=== PATIENT | male | born 1990 | race African-American/Black ===

== ENCOUNTER 2021-08-12 06:42 | Emergency (ER) | payer OTHER ==
[2021-08-12 07:19] VITALS: BMI 35.9
[2021-08-12 10:11] LABS: BASO % 0.4 % (0-2.0); EOS % 1.4 % (0-4.5); HEMATOCRIT 46.4 % (35.4-49); HEMOGLOBIN 15.7 GM/dL (11.7-16.9); LYMPH % 38.3 % (8-40); MCH 29.8 pg (25.7-33.7); MCHC 33.9 g/dl (32.0-35.9); MEAN CELL VOLUME 87.7 fl (80-96); MEAN PLT VOLUME 8.2 fl (7.5-11.1); MONO % 14.4 % (3.8-10.2); NEUT % 45.5 % (42.8-82.8); PLATELET COUNT 182 10^3/uL (134-434); RBC 5.29 M/mm3 (4.00-5.60); RDW 13.9 % (11.9-15.9); WHITE BLOOD COUNT 2.6 K/mm3 (4.0-10.0)
[2021-08-12 10:33] LABS: CHLORIDE 110 mmol/L (98-107); SODIUM 142 mmol/L (136-145)
[2021-08-12 10:35] LABS: ANION GAP 5 MMOL/L (8-16); BLOOD UREA NITROGEN 13.5 mg/dL (7-18); CALCIUM 9.6 mg/dL (8.5-10.1); CO2 28 mmol/L (21-32); GLUCOSE,RANDOM 90 mg/dL (74-106)
[2021-08-12 10:38] LABS: CREATININE 0.9 mg/dL (0.55-1.3); SGOT/AST 15 U/L (15-37); SGPT/ALT 20 U/L (13-61)
[2021-08-12 10:40] LABS: BILIRUBIN,TOTAL 1.1 mg/dL (0.2-1); TOT PROT 6.6 g/dl (6.4-8.2)
[2021-08-12 10:41] LABS: ALK PHOS 89 U/L (45-117)
[2021-08-12 10:45] VITALS: BP 124/67; PULSE 60; TEMP 97.9
== END 2021-08-12 14:21 | disposition home or self-care (01) ==
LOC: JER 06:42
DX: R07.89 Other chest pain (principal); B34.9 Viral infection, unspecified
CPT/HCPCS: 0241U-QW; 36415; 71046-TC-FY; 80053; 82550; 82553; 84484; 85025; 93005; 93010; 99285-25

== ENCOUNTER 2022-08-27 09:25 | Emergency (ER) | payer OTHER ==
[2022-08-27 09:33] VITALS: BP 121/88; PULSE 65; RESP 17; TEMP 97.9; BMI 38.5
[2022-08-27] MEDS ORDERED: TETANUS AND DIPHTHERIA TOXOID 0.5 ML DISP.SYRIN IM ONE (10:19)
[2022-08-27] MEDS ORDERED: DIPHTH,PERTUSS(ACELL),TET 0.5 ML DISP.SYRIN IM ONE (10:21)
[2022-08-27 10:38] LABS: BASO % 1.5 % (0-2.0); EOS % 0.7 % (0-4.5); HEMATOCRIT 50.3 % (35.4-49); LYMPH % 38.1 % (8-40); MCH 28.6 pg (25.7-33.7); MCHC 33.7 g/dl (32.0-35.9); MEAN CELL VOLUME 84.8 fl (80-96); MEAN PLT VOLUME 8.1 fl (7.5-11.1); MONO % 9.7 % (3.8-10.2); PLATELET COUNT 161 10^3/uL (134-434); RBC 5.93 M/mm3 (4.00-5.60); RDW 14.4 % (11.9-15.9); WHITE BLOOD COUNT 2.9 K/mm3 (4.0-10.0)
[2022-08-27 11:01] LABS: POTASSIUM 4.6 mmol/L (3.5-5.1)
[2022-08-27 11:03] LABS: ALBUMIN 4.7 g/dl (3.4-5.0); BLOOD UREA NITROGEN 13.4 mg/dL (7-18); CALCIUM 9.6 mg/dL (8.5-10.1)
[2022-08-27 11:11] LABS: BILIRUBIN,TOTAL 2.3 mg/dL (0.2-1); TOT PROT 7.4 g/dl (6.4-8.2)
[2022-08-27 12:00] LABS: HIV INTERPRETATION NEGATIVE (NEGATIVE)
== END 2022-08-27 11:29 | disposition home or self-care (01) ==
LOC: JERFT 09:25
PROC: 3E0234Z Introduction of Serum, Toxoid and Vaccine into Muscle, Percutaneous Approach (ICD-10-PCS; principal; 2022-08-27)
DX: S61.432A Puncture wound without foreign body of left hand, initial encounter (principal); W46.0XXA Contact with hypodermic needle, initial encounter
CPT/HCPCS: 36415; 80053; 85025; 86704; 86803; 87340; 87389; 87517; 99283-25

== ENCOUNTER 2022-09-16 10:19 | Emergency (ER) | payer OTHER ==
[2022-09-16 10:24] VITALS: BMI 36.6
[2022-09-16] MEDS ORDERED: SODIUM CHLORIDE 1,000 ML IV STA (11:44)
[2022-09-16 12:43] LABS: BASO % 0.7 % (0-2.0); EOS % 1.5 % (0-4.5); HEMATOCRIT 47.2 % (35.4-49); HEMOGLOBIN 15.9 GM/dL (11.7-16.9); LYMPH % 32.4 % (8-40); MCH 28.6 pg (25.7-33.7); MCHC 33.6 g/dl (32.0-35.9); MEAN PLT VOLUME 8.7 fl (7.5-11.1); MONO % 7.1 % (3.8-10.2); NEUT % 58.3 % (42.8-82.8); PLATELET COUNT 143 10^3/uL (134-434); RBC 5.55 M/mm3 (4.00-5.60); RDW 14.7 % (11.9-15.9); WHITE BLOOD COUNT 2.4 K/mm3 (4.0-10.0)
[2022-09-16 13:04] LABS: CALCIUM 9.9 mg/dL (8.5-10.1)
[2022-09-16 13:05] LABS: ALBUMIN 4.4 g/dl (3.4-5.0); BLOOD UREA NITROGEN 10.5 mg/dL (7-18)
[2022-09-16 13:09] LABS: TOT PROT 7.1 g/dl (6.4-8.2)
[2022-09-16 13:10] LABS: BILIRUBIN,TOTAL 1.9 mg/dL (0.2-1)
[2022-09-16 14:02] VITALS: BP 122/72; PULSE 89; RESP 19; TEMP 98.6
== END 2022-09-16 14:02 | disposition home or self-care (01) ==
LOC: JER 10:19
DX: R11.0 Nausea (principal); R42 Dizziness and giddiness; R55 Syncope and collapse
CPT/HCPCS: 36415; 80053; 82962; 84484; 85025; 93005; 93010; 99284-25

== ENCOUNTER 2023-10-14 10:24 | Emergency (ER) | payer OTHER ==
[2023-10-14 10:31] VITALS: BP 114/77; PULSE 66; RESP 20; TEMP 97.7; BMI 39.8
== END 2023-10-14 11:37 | disposition home or self-care (01) ==
LOC: JER 10:24
DX: K52.9 Noninfective gastroenteritis and colitis, unspecified (principal); R10.9 Unspecified abdominal pain; R19.7 Diarrhea, unspecified
CPT/HCPCS: 99283-25

== ENCOUNTER 2024-09-16 01:56 | Emergency (ER) | payer OTHER ==
[2024-09-16 02:06] VITALS: BP 117/75; PULSE 84; RESP 18; TEMP 98.2; BMI 32.7
== END 2024-09-16 06:24 | disposition home or self-care (01) ==
LOC: FER 01:56
DX: F12.920 Cannabis use, unspecified with intoxication, uncomplicated (principal); R42 Dizziness and giddiness
CPT/HCPCS: 93005; 93010; 99283-25